=== PATIENT | male | born 1960 | race Caucasian/White ===

== ENCOUNTER 2022-04-21 17:27 | Emergency (ER) | payer MEDICARE, MEDICAID | END 2022-04-21 18:54 | disposition home or self-care (01) | LOC: VM.ED 17:27 | DX: S00.81XA Abrasion of other part of head, initial encounter (principal); F17.210 Nicotine dependence, cigarettes, uncomplicated; W18.09XA Striking against other object with subsequent fall, initial encounter | CPT/HCPCS: 70450; 99283-25; 99284 ==